=== PATIENT | female | born 1945 | race Caucasian/White ===

== ENCOUNTER 2018-04-08 18:22 | Emergency (ER) | payer MEDICARE, OTHER ==
[~2018-04-08 18:22] MED LIST: ASPI-555 PO; CRAN1CAP10 PO; EZET10 PO; FLUO20CA30 PO; LEVO50TA11 PO; LOPE2 PO; LOSA1TAB37 PO; MV-M1TAB20 PO; NAPR-1023 PO; OMEP20TA2 PO; TRAM50TA4 PO; TRAZ-185 PO; VITA1CAP PO
[2018-04-08 18:46] LABS: APPEARANCE,URINE CLOUDY (CLEAR); BILIRUBIN,URINE SMALL (NEGATIVE); COLOR,URINE YELLOW (YELLOW); GLUCOSE, URINE (UA) NEGATIVE (NEGATIVE); KETONES,URINE 5 mg/dL (NEGATIVE); LEUKOCYTE ESTERASE ,URINE MODERATE (NEGATIVE); NITRATE,URINE POSITIVE (NEGATIVE); OCCULT BLOOD,URINE LARGE (NEGATIVE); PH,URINE 5.5 (5.0-8.0); PROTEIN,URINE >=300 (NEGATIVE)
[2018-04-08 18:51] LABS: BASOPHILS % (AUTO) 0.4 % (0.0-5.0); EOSINOPHILS % (AUTO) 3.2 % (0.0-8.0); HEMATOCRIT 40.2 % (36-48); LYMPHOCYTES % (AUTO) 26.6 % (21.0-51.0); MEAN CORPUSCULAR HEMOGLOBIN 28.9 pg (27.0-33.0); MEAN CORPUSCULAR HGB CONC 33.1 g/dL (32.0-36.0); MEAN CORPUSCULAR VOLUME 87.4 fL (79-99); MONOCYTES % (AUTO) 8.7 % (3.0-13.0); NEUTROPHILS % (AUTO) 61.1 % (40.0-77.0); NUCLEATED RED BLOOD CELLS 0.1 % (0.0-0.19); PLATELET COUNT (AUTO) 279 K/uL (130-400); RED CELL DISTRIBUTION WIDTH 15.4 % (11.0-15.5); WHITE BLOOD COUNT (AUTO) 12.4 K/uL (4.8-10.8)
[2018-04-08 18:57] LABS: RBC,URINE 26-50 /HPF (0-1)
[2018-04-08 18:59] LABS: BACTERIA,URINE Few /HPF (None Seen); SQUAMOUS EPITHELIAL CELL,UR Rare /HPF (0-2)
[2018-04-08 19:11] LABS: POTASSIUM 3.7 mmol/L (3.5-5.1)
[2018-04-08 19:16] LABS: ALBUMIN 3.6 g/dL (3.5-5.0); BILIRUBIN,TOTAL 0.4 mg/dL (0.2-1.0); TOTAL PROTEIN, SERUM 7.2 g/dL (6.0-8.3)
[2018-04-08] MEDS ORDERED: PHENAZOPYRIDINE HCL 200 MG TABLET ONE (19:23)
[2018-04-08] MEDS ORDERED: CEFTRIAXONE SODIUM 1 GM ONE (19:23)
== END 2018-04-08 21:15 | disposition home or self-care (01) ==
LOC: EDH 18:22
DX: N30.00 Acute cystitis without hematuria (principal); R33.9 Retention of urine, unspecified; E07.9 Disorder of thyroid, unspecified; Z88.2 Allergy status to sulfonamides
CPT/HCPCS: 36415; 51701; 76770; 80053; 81001; 85025; 87088; 96374; 99284; J0696

== ENCOUNTER → 2018-08-28 | Outpatient (CLI) | payer OTHER | END | disposition home or self-care (01) | LOC: SHCH 15:40 | PROVIDERS: ATTEND Internal Medicine Cardiovascular Disease | DX: I51.7 Cardiomegaly (principal); I37.1 Nonrheumatic pulmonary valve insufficiency | CPT/HCPCS: 93306 ==

== ENCOUNTER → 2021-07-24 | Outpatient (CLI) | payer OTHER ==
[~2021-07-24] MED LIST changes: -ASPI-555 PO; +ASPI-556 PO; -EZET10 PO; +EZET10TA13 PO
== END | disposition home or self-care (01) ==
LOC: SHCH 13:02
PROVIDERS: ATTEND Internal Medicine Cardiovascular Disease
DX: I48.0 Paroxysmal atrial fibrillation (principal); I27.20 Pulmonary hypertension, unspecified; I11.9 Hypertensive heart disease without heart failure; E78.5 Hyperlipidemia, unspecified; E66.9 Obesity, unspecified
CPT/HCPCS: 93306

== ENCOUNTER 2021-11-05 06:59 | Day surgery (SDC) | payer OTHER ==
[2021-11-01 10:07] LABS: BASOPHILS % (AUTO) 0.6 % (0.0-5.0); EOSINOPHILS % (AUTO) 3.1 % (0.0-8.0); HEMATOCRIT 33.8 % (36-48); LYMPHOCYTES % (AUTO) 33.4 % (21.0-51.0); MEAN CORPUSCULAR HEMOGLOBIN 26.1 pg (27.0-33.0); MEAN CORPUSCULAR HGB CONC 31.1 g/dL (32.0-36.0); MEAN CORPUSCULAR VOLUME 83.9 fL (79-99); NEUTROPHILS % (AUTO) 48.5 % (40.0-77.0); PLATELET COUNT (AUTO) 290 K/uL (130-400); RED BLOOD CELL COUNT(AUTO) 4.03 MIL/uL (4.00-5.50); RED CELL DISTRIBUTION WIDTH 15.4 % (11.0-15.5); WHITE BLOOD COUNT (AUTO) 8.5 K/uL (4.8-10.8)
[2021-11-01 10:10] LABS: CREATININE 1.2 mg/dL (0.5-1.5)
[2021-11-01 10:11] LABS: INR 0.94 (0.85-1.15); PROTHROMBIN TIME 10.3 SEC (9.6-11.6)
[2021-11-01 10:12] LABS: PARTIAL THROMBOPLASTIN TIME 24.7 SEC (26.3-35.5)
[2021-11-01 16:26] VITALS: BP 201/70
[~2021-11-05] VITALS: Ht 154.9 cm; Wt 104.1 kg
[~2021-11-05 06:59] MED LIST changes: +ACET-2743 PO; +APIX5TAB PO; -ASPI-556 PO; +CHLO25TA3 PO; +CIPR-278 PO; -CRAN1CAP10 PO; +D-MA500C PO; +DIPH25CA85 PO; +ESCI20TA38 PO; -EZET10TA13 PO; -FLUO20CA30 PO; +FURO20TA4 PO; -LEVO50TA11 PO; +LEVO75CA5 PO; -LOSA1TAB37 PO; +LOSA25TA41 PO; -NAPR-1023 PO; -OMEP20TA2 PO; +OMEP40CA21 PO; +POTA99CA PO; +PROP225T3 PO; -TRAM50TA4 PO
[2021-11-05 07:19] VITALS: BP 149/58
[2021-11-05] MEDS ORDERED: 0.9%NACL 1000ML 1,000 ML IV ONE (07:31)
[2021-11-05] MEDS ORDERED: LIDOCAINE HCL 400MG/20ML VIAL ONE (09:55)
[2021-11-05] MEDS ORDERED: TRAM50TA4 PO (10:19)
[2021-11-05 10:30] VITALS: BP 103/49
[2021-11-05] MEDS ORDERED: ACETAMINOPHEN WITH CODEINE 1 TAB TAB PO PRN (10:30)
[2021-11-05 10:45] VITALS: BP 167/73
[2021-11-05 11:00] VITALS: BP 138/59
[2021-11-05 11:10] VITALS: BP 139/62
== END 2021-11-05 11:25 | disposition home or self-care (01) ==
LOC: DAH 06:59
PROVIDERS: ATTEND Internal Medicine Cardiovascular Disease
DX: I48.0 Paroxysmal atrial fibrillation (principal); I45.10 Unspecified right bundle-branch block; Z79.01 Long term (current) use of anticoagulants; Z79.890 Hormone replacement therapy; Z88.1 Allergy status to other antibiotic agents; Z91.040 Latex allergy status
CPT/HCPCS: 80048; 85025; 85610; 85730; 36415 ×2; 93005; 33285; 84132; A4649; C1764; J3490; J7030; A4215; A4222; A4221; A4663; A4216; A4606; A4223 ×3

== ENCOUNTER → 2023-03-04 | Outpatient (CLI) | payer OTHER ==
[~2023-03-04] MED LIST changes: +TRAM50TA4 PO
[2023-03-04 12:15] LABS: BASOPHILS # (AUTO) 0.04 K/uL (0.00-0.20); BASOPHILS % (AUTO) 0.5 % (0.0-5.0); EOSINOPHILS # (AUTO) 0.43 K/uL (0.00-0.70); EOSINOPHILS % (AUTO) 5.1 % (0.0-8.0); HEMATOCRIT 36.2 % (36-48); IMMATURE GRANULOCYTE ABSOLUTE 0.02 K/uL (0-1); LYMPHOCYTES # (AUTO) 3.2 K/uL (1.0-4.8); LYMPHOCYTES % (AUTO) 37.6 % (21.0-51.0); MEAN CORPUSCULAR HEMOGLOBIN 25.5 pg (27.0-33.0); MEAN CORPUSCULAR HGB CONC 30.4 g/dL (32.0-36.0); MONOCYTES # (AUTO) 0.9 K/uL (0.1-1.0); NEUTROPHILS # (AUTO) 3.8 K/uL (1.8-7.7); NEUTROPHILS % (AUTO) 45.6 % (40.0-77.0); PLATELET COUNT (AUTO) 336 K/uL (130-400); RED BLOOD CELL COUNT(AUTO) 4.31 MIL/uL (4.00-5.50); RED CELL DISTRIBUTION WIDTH 17.5 % (11.0-15.5); WHITE BLOOD COUNT (AUTO) 8.4 K/uL (4.8-10.8)
[2023-03-04 12:22] LABS: % IRON SATURATION 9.2 % (22-44)
[2023-03-04 12:38] LABS: ALBUMIN 3.4 g/dL (3.5-5.0); BILIRUBIN,TOTAL 0.5 mg/dL (0.2-1.0); CREATININE 1.1 mg/dL (0.5-1.5); TOTAL PROTEIN, SERUM 7.2 g/dL (6.0-8.3)
== END | disposition home or self-care (01) ==
LOC: LAB 08:27
PROVIDERS: ATTEND Internal Medicine Cardiovascular Disease
DX: I95.2 Hypotension due to drugs (principal); D64.9 Anemia, unspecified
CPT/HCPCS: 36415; 80053; 82728; 83540; 83550; 85025

== ENCOUNTER 2023-04-24 08:53 | Day surgery (SDC) | payer OTHER ==
[2023-04-24] VITALS (11 sets, daily range): BP systolic 107–144; BP diastolic 41–69; PULSE 56–69; RESP 16–19
[~2023-04-24] VITALS: Ht 154.9 cm; Wt 100.2 kg
[~2023-04-24 08:53] MED LIST changes: -ACET-2743 PO; +ACET-66 PO; -CHLO25TA3 PO; -CIPR-278 PO; -DIPH25CA85 PO; -FURO20TA4 PO; +HYDR12.54 PO; +LEVO50CA4 PO; -LEVO75CA5 PO; -LOPE2 PO; -MV-M1TAB20 PO; -POTA99CA PO; -TRAM50TA4 PO; -TRAZ-185 PO; +VITAMIN D3 PO
[2023-04-24] MEDS ORDERED: 0.9%NACL 1000ML 1,000 ML IV ONE (09:27)
[2023-04-24] MEDS ORDERED: PROPOFOL 10 MG/ML 20ML VIAL IV ONE (12:24)
== END 2023-04-24 13:53 | disposition home or self-care (01) ==
LOC: DAH 08:53 → ENDO 08:53
PROVIDERS: ATTEND Internal Medicine Gastroenterology
DX: R13.10 Dysphagia, unspecified (principal); R12 Heartburn; K29.50 Unspecified chronic gastritis without bleeding; K22.2 Esophageal obstruction; K25.9 Gastric ulcer, unspecified as acute or chronic, without hemorrhage or perforation; K44.9 Diaphragmatic hernia without obstruction or gangrene; E03.9 Hypothyroidism, unspecified; I48.91 Unspecified atrial fibrillation; D50.9 Iron deficiency anemia, unspecified; I10 Essential (primary) hypertension; E78.5 Hyperlipidemia, unspecified; F41.9 Anxiety disorder, unspecified; F32.9 Major depressive disorder, single episode, unspecified; M19.90 Unspecified osteoarthritis, unspecified site; Z79.899 Other long term (current) drug therapy; Z98.890 Other specified postprocedural states; Z88.8 Allergy status to other drugs, medicaments and biological substances
CPT/HCPCS: 43239; 43248; J7030 ×2; J2704; A4620; A4215 ×2; A4223; A7002; A4222; A4221; A4663; A4606; J3490

== ENCOUNTER → 2023-07-07 | Outpatient (CLI) | payer OTHER | LOC: SHCH 10:40 | PROVIDERS: ATTEND Internal Medicine Cardiovascular Disease | DX: I48.0 Paroxysmal atrial fibrillation (principal) | CPT/HCPCS: 93306 ==

== ENCOUNTER 2023-11-13 20:31 | Observation (INO) | payer OTHER ==
[~2023-11-13] VITALS: Ht 154.9 cm; Wt 100.7 kg
[2023-11-13] MEDS: 0.9%NACL 1000ML 1,000 ML IV ONE (21:35)
[2023-11-13] MEDS: morPHINE 2 MG SYG IVP ONE (21:35)
[2023-11-13] MEDS: ONDANSETRON 4MG INJ IVP ONE (21:35)
[2023-11-13] MEDS: FAMOTIDINE 20MG TAB PO ONE (21:35)
[2023-11-13] MEDS: DICYCLOMINE 20MG (10MG/ML) AMP IM ONE (21:35)
[2023-11-13 21:38] LABS: BASOPHILS # (AUTO) 0.04 K/uL (0.00-0.20); BASOPHILS % (AUTO) 0.2 % (0.0-5.0); EOSINOPHILS % (AUTO) 1.2 % (0.0-8.0); HEMATOCRIT 45.9 % (36-48); LYMPHOCYTES # (AUTO) 2.4 K/uL (1.0-4.8); LYMPHOCYTES % (AUTO) 14.4 % (21.0-51.0); MEAN CORPUSCULAR HEMOGLOBIN 28.2 pg (27.0-33.0); MEAN CORPUSCULAR VOLUME 88.1 fL (79-99); MONOCYTES # (AUTO) 1.4 K/uL (0.1-1.0); MONOCYTES % (AUTO) 8.7 % (3.0-13.0); NEUTROPHILS # (AUTO) 12.3 K/uL (1.8-7.7); NEUTROPHILS % (AUTO) 74.9 % (40.0-77.0); PLATELET COUNT (AUTO) 266 K/uL (130-400); RED BLOOD CELL COUNT(AUTO) 5.21 MIL/uL (4.00-5.50); WHITE BLOOD COUNT (AUTO) 16.4 K/uL (4.8-10.8)
[2023-11-13 21:52] LABS: CREATININE 1.6 mg/dL (0.5-1.0); POTASSIUM 4.3 mmol/L (3.5-5.1)
[2023-11-13 21:56] LABS: ALBUMIN 3.6 g/dL (3.5-5.0); BILIRUBIN,TOTAL 0.6 mg/dL (0.2-1.0); TOTAL PROTEIN, SERUM 7.4 g/dL (6.0-8.3)
[2023-11-14] VITALS (10 sets, daily range): BP systolic 104–134; BP diastolic 42–62; PULSE 63–84; RESP 16–19; TEMP 97.8–98.8; O2SAT 93–98
[2023-11-14] MEDS ORDERED: ALBUTEROL 0.083% 2.5 MG/3 ML INH IH PRN (00:30)
[2023-11-14] MEDS ORDERED: GLUCAGON 1MG KIT 1 MG ML IM PRN (00:30)
[2023-11-14] MEDS ORDERED: DEXTROSE 50%-WATER 50 ML DISP.SYRIN IV PRN (00:30)
[2023-11-14] MEDS ORDERED: ONDANSETRON 4MG INJ IVP PRN (00:30)
[2023-11-14] MEDS ORDERED: OMEP20CA12 PO (01:37)
[2023-11-14] MEDS: metRONIDazole 500MG/100ML BAG 100 ML IVPB SCH (01:59)
[2023-11-14] MEDS: cefTRIAXone 1G VIAL IV SCH (03:07)
[2023-11-14] MEDS: 0.9%NACL 1000ML 1,000 ML IV SCH (03:12)
[2023-11-14 06:12] LABS: BASOPHILS # (AUTO) 0.04 K/uL (0.00-0.20); BASOPHILS % (AUTO) 0.3 % (0.0-5.0); EOSINOPHILS # (AUTO) 0.12 K/uL (0.00-0.70); HEMATOCRIT 36.9 % (36-48); HEMOGLOBIN A1C 5.5 % (4.0-6.0); IMMATURE GRANULOCYTE ABSOLUTE 0.04 K/uL (0-1); LYMPHOCYTES # (AUTO) 2.8 K/uL (1.0-4.8); LYMPHOCYTES % (AUTO) 23.5 % (21.0-51.0); MEAN CORPUSCULAR HEMOGLOBIN 28.4 pg (27.0-33.0); MEAN CORPUSCULAR VOLUME 88.7 fL (79-99); MONOCYTES # (AUTO) 1.5 K/uL (0.1-1.0); MONOCYTES % (AUTO) 12.6 % (3.0-13.0); NEUTROPHILS # (AUTO) 7.4 K/uL (1.8-7.7); NEUTROPHILS % (AUTO) 62.3 % (40.0-77.0); PLATELET COUNT (AUTO) 202 K/uL (130-400); RED BLOOD CELL COUNT(AUTO) 4.16 MIL/uL (4.00-5.50); RED CELL DISTRIBUTION WIDTH 17.1 % (11.0-15.5)
[2023-11-14 06:33] LABS: CREATININE 1.4 mg/dL (0.5-1.0); PHOSPHORUS 4.2 mg/dL (2.5-4.9); POTASSIUM 4.4 mmol/L (3.5-5.1); THYROID STIMULATING HORMONE 1.09 uIU/mL (0.36-3.74)
[2023-11-14] MEDS: levoTHYROxine 50 MCG TABLET PO SCH (06:35)
[2023-11-14] MEDS: INSULIN humuLIN R 100 UNIT/ML 3ML SQ SCH (07:18)
[2023-11-14] MEDS: FAMOTIDINE 20MG TAB PO SCH (09:38)
[2023-11-14] MEDS: PROPAFENONE HCL 150 MG TABLET PO SCH (09:38)
[2023-11-14] MEDS: APIXaban 5 MG TABLET PO SCH (09:38)
[2023-11-14] MEDS: acetaMINOPHEN 325 MG TAB PO PRN (23:00)
[2023-11-15] VITALS (7 sets, daily range): BP systolic 109–135; BP diastolic 51–61; PULSE 63–84; RESP 16–18; TEMP 97.9–98.6; O2SAT 94–95
[2023-11-15 04:42] LABS: BASOPHILS # (AUTO) 0.05 K/uL (0.00-0.20); BASOPHILS % (AUTO) 0.6 % (0.0-5.0); EOSINOPHILS # (AUTO) 0.34 K/uL (0.00-0.70); EOSINOPHILS % (AUTO) 4.1 % (0.0-8.0); HEMATOCRIT 35.7 % (36-48); IMMATURE GRANULOCYTE ABSOLUTE 0.01 K/uL (0-1); LYMPHOCYTES # (AUTO) 2.9 K/uL (1.0-4.8); LYMPHOCYTES % (AUTO) 35.2 % (21.0-51.0); MEAN CORPUSCULAR HEMOGLOBIN 28.8 pg (27.0-33.0); MEAN CORPUSCULAR HGB CONC 31.7 g/dL (32.0-36.0); MEAN CORPUSCULAR VOLUME 90.8 fL (79-99); MONOCYTES # (AUTO) 1.1 K/uL (0.1-1.0); MONOCYTES % (AUTO) 13.8 % (3.0-13.0); NEUTROPHILS # (AUTO) 3.8 K/uL (1.8-7.7); NEUTROPHILS % (AUTO) 46.2 % (40.0-77.0); PLATELET COUNT (AUTO) 184 K/uL (130-400); RED BLOOD CELL COUNT(AUTO) 3.93 MIL/uL (4.00-5.50); RED CELL DISTRIBUTION WIDTH 17.2 % (11.0-15.5); WHITE BLOOD COUNT (AUTO) 8.2 K/uL (4.8-10.8)
[2023-11-15 05:01] LABS: CREATININE 1.1 mg/dL (0.5-1.0); MAGNESIUM 1.9 mg/dL (1.80-2.40); PHOSPHORUS 3.8 mg/dL (2.5-4.9); THYROID STIMULATING HORMONE 1.18 uIU/mL (0.36-3.74)
[2023-11-15] MEDS ORDERED: METR-172 PO (10:54)
[2023-11-16 05:42] LABS: C DIFFICILE TOXIN A/B Not Detected (Not Detected); ENTEROAGGREGATIVE ECOLI Not Detected (Not Detected); GIARDIA LAMBLIA Not Detected (Not Detected); PLESIOMONAS SHIGELOIDES Not Detected (Not Detected); SAPOVIRUS Not Detected (Not Detected); SHIGELLA/ENTEROINVASIVE E COLI Not Detected (Not Detected); VIBRIO Not Detected (Not Detected); VIBRIO CHOLERAE Not Detected (Not Detected)
== END 2023-11-15 13:25 | disposition home or self-care (01) ==
LOC: EDH 20:31 → EDHIP 11-14 00:10 → 3DH 11-14 00:54
PROVIDERS: ADMIT Internal Medicine Pulmonary Disease; ATTEND Internal Medicine Pulmonary Disease
DX: K52.9 Noninfective gastroenteritis and colitis, unspecified (principal); R11.2 Nausea with vomiting, unspecified; F32.A Depression, unspecified; I10 Essential (primary) hypertension; E78.00 Pure hypercholesterolemia, unspecified; E86.0 Dehydration; F10.20 Alcohol dependence, uncomplicated; E03.9 Hypothyroidism, unspecified; I48.20 Chronic atrial fibrillation, unspecified; N17.9 Acute kidney failure, unspecified; M19.90 Unspecified osteoarthritis, unspecified site; D72.829 Elevated white blood cell count, unspecified; R73.9 Hyperglycemia, unspecified; M54.59 Other low back pain; Z79.01 Long term (current) use of anticoagulants; Z79.899 Other long term (current) drug therapy; Z98.890 Other specified postprocedural states
CPT/HCPCS: 96372; 96375; 82550; 84484; 80053; 83690; 85025 ×3; 71045; 74176; 99291; 93005; 96361 ×2; 96365; 96366 ×2; 96367; 83036; 84443 ×2; 83735 ×2; 84100 ×2; 82330; 80048 ×2; 82948 ×6; 87324; 36415 ×3; 94664; 87507; 96376; J2270; J7030; J2405; J0500; G0378 ×37; J0696 ×4; J3490 ×5

== ENCOUNTER → 2025-04-05 | Outpatient (CLI) | payer OTHER ==
[~2025-04-05] MED LIST changes: -ACET-66 PO; +AMOX1TAB16 PO; +BUPR-49 PO; -D-MA500C PO; -LEVO50CA4 PO; +LEVO88CA5 PO; +METO50 PO; +OMEP20CA12 PO; -PROP225T3 PO; +PROP225T8 PO; -VITA1CAP PO; -VITAMIN D3 PO
== END | disposition home or self-care (01) ==
LOC: WHH 09:17
PROVIDERS: ATTEND Family Medicine
DX: T81.31XA Disruption of external operation (surgical) wound, not elsewhere classified, initial encounter (principal); I10 Essential (primary) hypertension; E78.00 Pure hypercholesterolemia, unspecified; K21.9 Gastro-esophageal reflux disease without esophagitis; E03.9 Hypothyroidism, unspecified; M19.90 Unspecified osteoarthritis, unspecified site; E66.01 Morbid (severe) obesity due to excess calories; I48.91 Unspecified atrial fibrillation; I48.92 Unspecified atrial flutter; F32.A Depression, unspecified; Z79.01 Long term (current) use of anticoagulants; Z90.710 Acquired absence of both cervix and uterus; Z68.37 Body mass index [BMI] 37.0-37.9, adult; Y83.8 Other surgical procedures as the cause of abnormal reaction of the patient, or of later complication, without mention of misadventure at the time of the procedure; Y92.238 Other place in hospital as the place of occurrence of the external cause
CPT/HCPCS: G0463; A6197; A4450

== ENCOUNTER → 2025-04-12 | Outpatient (CLI) | payer OTHER | END | disposition home or self-care (01) | LOC: WHH 08:09 | PROVIDERS: ATTEND Family Medicine | DX: T81.31XD Disruption of external operation (surgical) wound, not elsewhere classified, subsequent encounter (principal); I10 Essential (primary) hypertension; E78.00 Pure hypercholesterolemia, unspecified; K21.9 Gastro-esophageal reflux disease without esophagitis; E03.9 Hypothyroidism, unspecified; M19.90 Unspecified osteoarthritis, unspecified site; E66.01 Morbid (severe) obesity due to excess calories; I48.91 Unspecified atrial fibrillation; I48.92 Unspecified atrial flutter; F32.A Depression, unspecified; Z79.01 Long term (current) use of anticoagulants; Z90.710 Acquired absence of both cervix and uterus; Z68.37 Body mass index [BMI] 37.0-37.9, adult; Y83.8 Other surgical procedures as the cause of abnormal reaction of the patient, or of later complication, without mention of misadventure at the time of the procedure | CPT/HCPCS: G0463; A6212; A6209; A6197 ==